=== PATIENT | male | born 1965 | race Caucasian/White ===

== ENCOUNTER 2023-12-27 12:05 | Emergency (ER) | payer BC, SELFPAY ==
[2023-12-27 12:07] VITALS: BP 166/89
[2023-12-27 12:48] VITALS: BMI 37.9
--- NOTE | 2023-12-27 13:19 | ED.GENMED ---
History of Present Illness
General
Chief Complaint: Skin Problem
Source: patient
Exam Limitations: none
Time Seen by Provider: 12/27/23 12:42
Nursing documentation reviewed up to this point in time: agreed with
History of Present Illness
History of Present Illness:
58-year-old male history of hypertension and anxiety presenting to the emergency department today with concerns of right-sided neck finger laceration that occurred prior to arrival from working on a machine. Denies any known foreign bodies
up-to-date with his tetanus shot. No history immunosuppression or infectious disease issues.
Past History
Past History
ED Past Medical History: GERD, HTN and Other (kidney stones)
ED Past Surgical History: Appendectomy
Social History
Employment: Employed
Review of Systems
Review of Systems
Allergies reviewed?: Yes
All Other Systems: ROS reviewed and negative except as documented in HPI and ROS
Phy Exam
Physical Exam
Physical Exam:
GENERAL: Alert , in no apparent distress
EYE: pupils equal and reactive
NECK: Supple, no significant adenopathy.
ENT: o/p clr, mmm.
CARDIAC: Regular rate and rhythm .
LUNGS: Clear breath sounds bilaterally, no acute respiratory distress, no wheezes/rales/rhonchi
ABDOMEN: Soft, without focal tenderness, no r/g, no cvat
NEUROLOGICAL: Alert and oriented, no focal neuro deficits
SKIN: 2 cm laceration to the right index finger on the palmar aspect distally. No foreign body seen warm and dry, skin intact.
MUSCULOSKELETAL: No edema, well perfused.
PSYCH: Normal and appropriate interaction.
Course
Vital Signs
Initial and Last Documented VS:
Initial Vital Signs
Temp Pulse Resp BP Pulse Ox
98.1 F 98 20 166/89 98
12/27/23 12:07 12/27/23 12:07 12/27/23 12:07 12/27/23 12:12/27/23 12:07
Last Documented Vital Signs
Temp Pulse Resp BP Pulse Ox
98.1 F 98 20 166/89 98
12/27/23 12:07 12/27/23 12:07 12/27/23 12:07 12/27/23 12:07 12/27/23 12:07
Procedures
Laceration Closure
Right Distal Second Finger:
Status of Wound: clean
Size of Wound in cm: 2
Description of Wound Edges: sharp
Preparation: cleaned with saline
Anesthesia: 1% Lidocaine and Digital-Regional
Revision/Debridement: routine- no revision
Wound exploration: explored to base- no FB and no tendon involvement
Type of Closure: single layer closure and interrupted sutures
Skin Closure Material: 5-0 chromic gut
Number of sutures: 5
MDM/Problems Addressed
MDM/Problems Addressed:
58-year-old male presenting to the emergency department today with concerns of right sided index finger laceration that occurred while using machine prior to arrival. No foreign body seen cleaned thoroughly digital block performed closed with 5
absorbing stitches otherwise stable for discharge return. Otherwise no indication for antibiotics no history of immunosuppression or foreign body, no evidence of bony injury. Good range of motion and strength.
*Critical Care Note
Total Time (30-74mins, 75-104mins- exclusive of procedures): Not Applicable
ED Attending Note
-
Portions of this chart may have been created with voice recognition software.� Occasional wrong word or��sound alike� substitutions may have occurred due to the inherent limitations of voice recognition software.
Discharge Plan
Departure
Patient Disposition: Home (Routine Discharge)
Date of Disposition: 12/27/23
Time of Disposition: 13:23
Patient with high blood pressure during this ER visit?: No
Condition: Good
Covid-19: Not Applicable
Discharge Problem:
Finger laceration
Instructions: Laceration Repair With Stitches ED
Referrals:
UNKNOWN - PT NOT,INTERVIEWE [Family Provider] -
Activity Restrictions/Additional Instructions:
You came to the emergency department today with concerns of a laceration to your finger. Please keep the area clean covered. Return for any worsening, new or concerning symptoms. You were given dissolving stitches these will dissolve over the
next 2 weeks or so.
Interventions
Interventions:
*Risk Screen - Suicide Last Done: 12/27/23 12:07
*General Assessment Last Done: 12/27/23 12:07
*Neglect/Abuse Screening Last Done: 12/27/23 12:07
ED- Fall Risk Assessment Last Done: 12/27/23 12:51
*ED COVID-19 Vaccine History Last Done: 12/27/23 12:48
ED-Skin Assessment Last Done: 12/27/23 12:51
Discharge Date and Time
Print Language: MICRONESIAN
== END 2023-12-27 13:39 | disposition home or self-care (01) ==
LOC: EMR 12:05
PROVIDERS: EMERGENCY PHYSICIAN Emergency Medicine
DX: S61.210A Laceration without foreign body of right index finger without damage to nail, initial encounter (principal); W45.8XXA Other foreign body or object entering through skin, initial encounter; K21.9 Gastro-esophageal reflux disease without esophagitis; I10 Essential (primary) hypertension; Z87.442 Personal history of urinary calculi; Z90.49 Acquired absence of other specified parts of digestive tract
CPT/HCPCS: 99282; 12001